=== PATIENT | male | born 1990 | race Caucasian/White ===

== ENCOUNTER 2019-03-31 08:23 | Emergency (ER) | payer OTHER ==
[2019-03-31 08:41] VITALS: TEMP 97.3
[2019-03-31] MEDS ORDERED: KETOROLAC TROMETHAMINE INJ 60 MG/2 ML VIAL IM ONE (08:55)
[2019-03-31] MEDS ORDERED: methylPREDNISolone SODIUM SUC 125 MG/2 ML VIAL IM ONE (08:55)
--- NOTE | 2019-03-31 09:00 | ED.PDOC ---
History of Present Illness - General Chief Complaint: General Stated Complaint: L ankle swelling and discomfort Time Seen by Provider: 03/31/19 08:55 Source: patient Exam Limitations: no limitations - History of Present Illness Initial Comments: PT PRESENTS TO THE ED WITH PERSISTENT L ANKLE PAIN SECONDARY TO GOUT. PT STATES THAT HE WAS SEEN AT A CLINIC LAST WEEK AND STARTED ON COLCHICINE. PT STATES THAT MEDICATION HAS NOT IMPROVED HIS SYMPTOMS. HE STATES THAT STEROIDS HAVE WORKED WHEN PRESCRIBED IN THE PAST. Occurred: last week Pain - Lower Extremity: moderate: Left Ankle Improving Factors: immobilization Worsening Factors: movement Allergies/Adverse Reactions: Allergies NO KNOWN ALLERGY Allergy (Verified 03/31/19 08:41) Home Medications: Ambulatory Orders Acetaminophen W/ Codeine [Tylenol W/ CODEINE #3] 1 ea PO Q4HR PRN #24 03/31/19 Allopurinol [Zyloprim] 100 mg PO BID 03/31/19 Indomethacin 100 mg PO DAILY 03/31/19 Methylprednisolone [Medrol Dose Dilip] 4 mg PO DAILY 6 Days #21 tab 03/31/19 Review of Systems - Review of Systems Constitutional: Denies: chills, fever Cardiology: Denies: edema, palpitations Musculoskeletal: States: joint pain. Denies: muscle pain Skin: Denies: dryness, lesions Past Medical History (General) - Patient Medical History Hx Stroke: No Hx Congestive Heart Failure: No Hx Diabetes: No - Vaccination History Hx Influenza Vaccination: Yes - 2018 Hx Pneumococcal Vaccination: No - Social History Hx Tobacco Use: No Hx Alcohol Use: Yes - Infrequently Family Medical History - Family History Father Family History: No Known Living Status: Still Living Physical Exam - Physical Exam General Appearance: Alert, Comfortable, No apparent distress, Well Developed, Well Groomed, Well Hydrated, Well Nourished Eyes, Ears, Nose, Throat: normal ENT inspection Cardiovascular/Respiratory: no respiratory distress Thigh/Hip: normal inspection, non-tender Leg: normal inspection, non-tender Knee: normal inspection, non-tender Ankle: normal inspection, non-tender, normal ROM Foot: normal inspection, non-tender Mental Status: alert Skin: normal color, warm/dry Departure - Departure Clinical Impression: Gout attack Time of Disposition: 09:02 Disposition: Discharge to Home or Self Care Condition: Good Departure Forms: ED Discharge - Pt. Copy, Patient Portal Self Enrollment Instructions: Gout (DC) Referrals: [facility] [Provider Group] - 1-5 Days Prescriptions: Acetaminophen W/ Codeine [Tylenol W/ CODEINE #3] 1 ea PO Q4HR PRN #24 PRN Reason: Pain Methylprednisolone [Medrol Dose Dilip] 4 mg PO DAILY 6 Days #21 tab Home Medications: Ambulatory Orders Acetaminophen W/ Codeine [Tylenol W/ CODEINE #3] 1 ea PO Q4HR PRN #24 03/31/19 Allopurinol [Zyloprim] 100 mg PO BID 03/31/19 Indomethacin 100 mg PO DAILY 03/31/19 Methylprednisolone [Medrol Dose Dilip] 4 mg PO DAILY 6 Days #21 tab 03/31/19
[2019-03-31 09:28] VITALS: BP 130/85; O2SAT 98
== END 2019-03-31 09:17 | disposition home or self-care (01) ==
LOC: ER 08:23
DX: M10.9 Gout, unspecified (principal)